=== PATIENT | male | born 1955 | race Caucasian/White ===

== ENCOUNTER 2016-04-26 07:30 | Day surgery (SDC) | payer OTHER, MEDICAID ==
[2016-04-26] MEDS ORDERED: IOPAMIDOL (ISOVUE-300) 100 ML BTL IV ONE (08:34)
[2016-04-26] MEDS ORDERED: fentaNYL 100 MCG/2 ML INJ ONE (08:52)
--- NOTE | 2016-04-26 10:59 | IR ---
Angiography of arterial venous fistula of left arm Central venography of left hemithorax HISTORY: Chronic renal failure. Currently dialyzing through the outflow vein of arteriovenous fistula of the upper left arm. Development of bruit. Consent: Risks and benefits of the procedure were discussed in detail, and informed consent was obta ined. Medications: Intravenous analgesia was given under my supervision. Vital signs, pulse oximetry, and e lectrocardiogram were monitored. The patient received 25 micrograms of fentanyl intravenously. Start time: 0 9:15. End time: 0 941. Fluoroscopy time in minutes: 1.1. Estimated exposure in mGy: 14.8. Technique: The left arm was prepped and draped in sterile fashion. All elements of maximal sterile ba rrier technique were used, including cap, mask, sterile gown, sterile gloves, large sterile sheath, h and hygiene, and 2% chlorhexidine for cutaneous antisepsis. For ultrasound imaging guidance, the mei sducer and cable were placed in a sterile cover, and sterile coupling gel was used. Ultrasound evalua tion of potential access sites was performed. After successfully identifying a patent vessel, ultraso und guidance was used to puncture the outflow vein with a 4-C[place] micropuncture introducer. A perman ent record was created. Outflow venography of the upper left arm and left hemithorax was performed. R eflux arteriography of the arteriovenous anastomosis was performed by applying temporary external occ lusive pressure to the outflow vein with a large clamp. Micropuncture introducer was removed and hemo stasis was obtained by manual compression with a Thrombix patch. The patient tolerated the procedure well and was returned to pre/post in stable condition. FINDINGS: Brachial artery is normal. The arteriovenous anastomosis is widely patent. The outflow vein is patent. A nonobstructive kink is found 2.4 cm downstream of the arteriovenous anastomosis. (This may be causing the bruit.) Further cephalad, the outflow vein has a 3 cm long segment of mild aneurys mal degeneration, up to 1.6 cm diameter. The left axillary vein, left subclavian vein, brachiocephali c vein, and visualized portion of superior vena cava are widely patent. 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 Aneurysm of the ulnar artery measures 5 mm diameter, located 1 cm downstream of its origin. IMPRESSION: 1. 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 No intervention necessary. 2. 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 - - - - - - - - - - - - - - - - - - - - - - - - - - - - - (PQRS measures: Current medications were listed in the medical record, including all known prescripti ons, [id number] medications, herbal medications, and nutritional supplements. Tobacco use: None . Prophylactic antibiotic:Unnecessary. VTE prophylaxis:Unnecessary.)
== END 2016-04-26 09:45 | disposition home or self-care (01) ==
LOC: FIMAGING 07:30
PROVIDERS: ATTEND Internal Medicine Nephrology
PROC: B31JZZZ Fluoroscopy of Left Upper Extremity Arteries (ICD-10-PCS; principal; 2016-04-26 09:00)
DX: T82.898A Other specified complication of vascular prosthetic devices, implants and grafts, initial encounter (principal); I72.1 Aneurysm of artery of upper extremity
CPT/HCPCS: J3010; Q9967